=== PATIENT | male | born 1950 | race Caucasian/White ===

== ENCOUNTER 2018-07-19 13:10 | Inpatient (IN) | payer MEDICARE, OTHER ==
[~2018-07-19] VITALS: Ht 165.1 cm; Wt 97.2 kg
[~2018-07-19 13:10] MED LIST: ASPI81TA94 PO; ATOR40TA24 PO; ATR10 PO; AVAPRO PO; OMEG1TAB4; PROB500T31 PO; TELM80TA5 PO
[2018-07-19] MEDS ORDERED: LOSA100T75 PO (13:16)
[2018-07-19] MEDS ORDERED: TAMS0.4C70 PO (13:16)
--- NOTE | 2018-07-19 13:21 | ER Report ---
History and Physical Time Seen By MD: 13:20 Hx. of Stated Complaint: SOB HPI/ROS CHIEF COMPLAINT: Shortness of breath HISTORY OF PRESENT ILLNESS: A 67-year-old male comes emergency Department today with 6-7 days of progressive worsening shortness of breath. Patient has a history of DVT and blood clots last PE was almost 15 years ago cyclamen and for 6 months to year and is no longer on that he is exertional dyspnea and orthopnea no PND no associated chest discomfort or pain or fever chills or sweats nausea vomiting denies any lower some pitting edema. REVIEW OF SYSTEMS: Respiratory: Shortness of breath with exertion no cough Cardiovascular: No chest pain, no palpitations. Gastrointestinal: No vomiting, no abdominal pain. Musculoskeletal: No back pain. Remainder of the 14 system rev: Yes Allergies: Coded Allergies: Penicillins (Verified Allergy, Mild, RASH, 11/02/06) Home Meds Reported Medications Tamsulosin Hcl (TAMSULOSIN HCL) 0.4 Mg Cap.er.24h, 0.4 MG PO, CAP 07/19/18 Losartan Potassium (LOSARTAN POTASSIUM) 100 Mg Tablet, 100 MG PO QDAY 07/19/18 Probenecid (PROBENECID) 500 Mg Tablet, 500 MG PO QDAY 05/16/17 Atorvastatin Calcium (LIPITOR) 40 Mg Tablet, 1 TAB PO HS, TAB 05/16/17 [place]-3S/Dha/Epa/Fish Oil/D3 (Fish Oil Gummies) Unknown Strength Tab.chew 05/16/17 Aspirin (ASPIRIN) 81 Mg Tab.chew, 81 MG PO QDAY, TAB.CHEW 05/16/17 Discontinued Reported Medications Telmisartan (MICARDIS) 80 Mg Tablet, 80 MG PO QDAY 05/16/17 Reviewed Nurses Notes: Yes Old Medical Records Reviewed: Yes Smoking Status: Never Smoker Constitutional Vital Sign - Last 24 Hours 07/19/18 07/19/18 07/19/18 07/19/18 13:13 13:16 13:18 13:25 Temp 97.6 Pulse 101 66 Resp 18 70 B/P (MAP) 191/104 191/104 (133) 173/93 (119) Pulse Ox 90 90 O2 Delivery Room Air 07/19/18 07/19/18 07/19/18 07/19/18 13:30 13:40 13:55 13:57 Pulse 71 ??? Resp 17 B/P (MAP) 151/101 (118) 157/85 (109) Pulse Ox 91 07/19/18 07/19/18 07/19/18 07/19/18 14:00 14:00 14:10 14:25 Pulse 86 73 Resp 19 17 B/P (MAP) 145/93 (110) Pulse Ox 94 93 O2 Flow Rate 1.0 07/19/18 14:30 B/P (MAP) 147/83 (104) Physical Exam General Appearance: The patient is alert, has no immediate need for airway protection and no current signs of toxicity. [ ] Eyes: Pupils equal and round no injection. Respiratory: Chest is non tender, lungs are clear to auscultation. Cardiac: regular rate and rhythm [ ] Gastrointestinal: Abdomen is soft and non tender, no masses, bowel sounds normal. Musculoskeletal: Neck: Neck is supple and non tender. Extremities have full range of motion and are non tender. Skin: No rashes or lesions. [ ] DIFFERENTIAL DIAGNOSIS: After history and physical exam differential diagnosis was considered for palmar emboli cardiac event pneumonia bronchitis Medical Decision Making Data Points Result Diagram: 07/19/18 1319 07/19/18 1319 Laboratory Hematology Test 07/19/18 13:19 Red Blood Count 5.12 M/uL (4.00-5.60) Mean Corpuscular Volume 99.5 fL (80.0-96.0) Mean Corpuscular Hemoglobin 34.6 pg (26.0-33.0) Mean Corpuscular Hemoglobin Concent 34.7 g/dL (32.0-36.0) Red Cell Distribution Width 12.7 % (11.5-14.5) Mean Platelet Volume 10.3 fL (7.2-11.1) Neutrophils (%) (Auto) 83.9 % (39.4-72.5) Lymphocytes (%) (Auto) 8.1 % (17.6-49.6) Monocytes (%) (Auto) 4.3 % (4.1-12.4) Eosinophils (%) (Auto) 1.9 % (0.4-6.7) Basophils (%) (Auto) 1.8 % (0.3-1.4) Nucleated RBC Relative Count (auto) 0.1 /100WBC Neutrophils # (Auto) 6.3 K/uL (2.0-7.4) Lymphocytes # (Auto) 0.6 K/uL (1.3-3.6) Monocytes # (Auto) 0.3 K/uL (0.3-1.0) Eosinophils # (Auto) 0.1 K/uL (0.0-0.5) Basophils # (Auto) 0.1 K/uL (0.0-0.1) Nucleated RBC Absolute Count (auto) 0.00 K/uL Sodium Level 141 mmol/L (137-145) Potassium Level 3.8 mmol/L (3.5-5.0) Chloride Level 104 mmol/L (98-107) Carbon Dioxide Level 24 mmol/L (22-30) Blood Urea Nitrogen 12 mg/dl (9-21) Creatinine 1.00 mg/dl (0.66-1.25) Glomerular Filtration Rate Calc > 60.0 Random Glucose 115 mg/dl (75-110) Calcium Level 9.7 mg/dl (8.4-10.2) Total Bilirubin 1.0 mg/dl (0.2-1.3) Aspartate Amino Transf (AST/SGOT) 30 U/L (0-35) Alanine Aminotransferase (ALT/SGPT) 27 U/L (0-56) Alkaline Phosphatase 76 U/L (0-126) Troponin I 0.015 ng/ml B-Type Natriuretic Peptide 38 pg/ml (0-100) Total Protein 8.2 g/dl (6.3-8.2) Albumin 4.5 g/dl (3.5-5.0) Chemistry Test 07/19/18 13:19 White Blood Count 7.6 k/uL (4.5-11.0) Red Blood Count 5.12 M/uL (4.00-5.60) Hemoglobin 17.7 g/dL (14.0-18.0) Hematocrit 50.9 % (42.0-52.0) Mean Corpuscular Volume 99.5 fL (80.0-96.0) Mean Corpuscular Hemoglobin 34.6 pg (26.0-33.0) Mean Corpuscular Hemoglobin Concent 34.7 g/dL (32.0-36.0) Red Cell Distribution Width 12.7 % (11.5-14.5) Platelet Count 156 K/uL (150-450) Mean Platelet Volume 10.3 fL (7.2-11.1) Neutrophils (%) (Auto) 83.9 % (39.4-72.5) Lymphocytes (%) (Auto) 8.1 % (17.6-49.6) Monocytes (%) (Auto) 4.3 % (4.1-12.4) Eosinophils (%) (Auto) 1.9 % (0.4-6.7) Basophils (%) (Auto) 1.8 % (0.3-1.4) Nucleated RBC Relative Count (auto) 0.1 /100WBC Neutrophils # (Auto) 6.3 K/uL (2.0-7.4) Lymphocytes # (Auto) 0.6 K/uL (1.3-3.6) Monocytes # (Auto) 0.3 K/uL (0.3-1.0) Eosinophils # (Auto) 0.1 K/uL (0.0-0.5) Basophils # (Auto) 0.1 K/uL (0.0-0.1) Nucleated RBC Absolute Count (auto) 0.00 K/uL Glomerular Filtration Rate Calc > 60.0 Calcium Level 9.7 mg/dl (8.4-10.2) Total Bilirubin 1.0 mg/dl (0.2-1.3) Aspartate Amino Transf (AST/SGOT) 30 U/L (0-35) Alanine Aminotransferase (ALT/SGPT) 27 U/L (0-56) Alkaline Phosphatase 76 U/L (0-126) Troponin I 0.015 ng/ml B-Type Natriuretic Peptide 38 pg/ml (0-100) Total Protein 8.2 g/dl (6.3-8.2) Albumin 4.5 g/dl (3.5-5.0) ED Course/Re-evaluation ED Course This is a 67-year-old male history of pulmonary emboli 15 years ago treated comes in today with a week of worsening shortness of breath he has a notable right-sided pulmonary emboli in the subsegmental branches and small left-sided pulmonary emboli as well as be started on Lovenox this demonstrate some mild right heart strain or being admitted for cardiac evaluation and management of the blood clot Decision to Disposition Date: Jul 19, 2018 Decision to Disposition Time: 15:01 Depart Departure Latest Vital Signs Vital Signs Date Time Temp Pulse Resp B/P (MAP) Pulse Ox O2 Delivery O2 Flow Rate FiO2 07/19/18 14:30 147/83 (104) 07/19/18 14:25 73 17 93 07/19/18 14:00 1.0 07/19/18 13:13 97.6 Room Air Impression: Primary Impression: Pulmonary emboli Condition: Improved Disposition: Admitted from ER Referrals: ANTHONY PERDOMO MD (PCP) JEWEL WHITESIDE MD Jul 19, 2018 13:21
[2018-07-19 13:30] LABS: PLATELET COUNT, AUTOMATED 156 K/uL (150-450)
--- NOTE | 2018-07-19 13:31 | EKG ---
FACILITY: [facility] [place] PATIENT NAME: IRMA AGUDELO : [id number] MR: [id number] V: [id number] EXAM DATE: ORDERING PHYSICIAN: JEWEL WHITESIDE TECHNOLOGIST: Test Reason : sob Blood Pressure : / mmHG Vent. Rate : 080 BPM Atrial Rate : 080 BPM P-R Int : 172 ms QRS Dur : 112 ms QT Int : 398 ms P-R-T Axes : 066 252 080 degrees QTc Int : 459 ms Sinus rhythm with sinus arrhythmia with occasional premature ventricular complexes Right superior axis deviation Inferior infarct , age undetermined ST and T wave abnormality, consider anterior ischemia Abnormal ECG No previous ECGs available Confirmed by MATT TORRES ([id number]) on 07/20/2018 6:36:46 AM Referred By: Confirmed By:MATT TORRES
[2018-07-19] MEDS ORDERED: IOPAMIDOL 76% 75 ML INFUS BTL 75 ML ONE (13:56)
[2018-07-19] MEDS ORDERED: NS(*) 0.9% 50 ML BAG 50 ML ONE (13:56)
--- NOTE | 2018-07-19 14:06 | RADIOLOGY IMAGING REPORT ---
[place] [facility] [place] : 1950 MR: [id number] V: [id number] EXAM DATE: ORDERING PHYSICIAN: JEWEL WHITESIDE TECHNOLOGIST: Location: [facility] [place] Patient: Christopher Johnson : 1950 Visit/Account:[id number] Date of Sevice: 07/19/2018 CHEST PA LAT COMPARISONS: None. ADDITIONAL PERTINENT HISTORY: Shortness of breath with history of pulmonary emboli. FINDINGS: Cardiomediastinal silhouette: Negative. Pulmonary vasculature: Negative. Lung cloud: Negative. Pleural spaces: Negative. Osseous structures: Negative. Surrounding soft tissues: Negative. IMPRESSION: No evidence of acute cardiopulmonary disease. Report Dictated By: Josue Morataya MD at 07/19/2018 2:02 PM Report E-Signed By: Josue Morataya MD at 07/19/2018 2:03 PM [id number]
--- NOTE | 2018-07-19 14:47 | RADIOLOGY IMAGING REPORT ---
FACILITY: [facility] [place] PATIENT NAME: Christopher Johnson : 1950 MR: [id number] V: [id number] EXAM DATE: ORDERING PHYSICIAN: JEWEL WHITESIDE TECHNOLOGIST: [place] [facility] [place] : 1950 Visit/Account:[id number] Date of Sevice: 07/19/2018 EXAMINATION: CTA of the chest with IV contrast HISTORY: Shortness of breath. History of pulmonary embolism. TECHNIQUE: Pulmonary embolus protocol - Thin axial CT images of the chest were obtained with IV con trast during maximal pulmonary arterial opacification. Reconstruction of the source data includes mul tiplanar 2D coronal and sagittal reconstructed images, and 3D coronal and sagittal MIP images. Repres entative images have been stored on PACS. One of the following dose optimization techniques was utilized in the performance of this exam: Autom ated exposure control; adjustment of the mA and/or kV according to the patient's size; or use of an i terative reconstruction technique. Specific details can be referenced in the facility's radiology C T exam operational policy. Contrast: 75 mL of IV Isovue-370. COMPARISON: None. FINDINGS: Pulmonary arteries: Exam is positive for pulmonary embolism, with a moderate volume of clot burden. There is a filling defect in the right upper lobe pulmonary artery extending into several segmental a nd subsegmental branches. There is a filling defect in the right interlobar artery extending into seg mental and subsegmental pulmonary artery branches in the right middle and lower lobes. There are daniel ral additional smaller filling defects present within segmental and subsegmental pulmonary artery bra nches in the left upper and lower lobes. Heart, aorta, and great vessels: Normal caliber abdominal aorta. There is mild enlargement of the ri ght-sided cardiac chambers with an RV:LV ratio measuring 1.3 which may indicate some degree of right heart strain. Coronary artery calcifications. No pericardial effusion. Lungs and pleura: The lungs are clear. No focal consolidation or evidence of pulmonary infarct. No p leural effusion or pneumothorax. The central airways are patent. Mediastinum and yimi: Negative. Visualized upper abdomen: Cholecystectomy. Chest wall: Negative. Bones: Negative. IMPRESSION: 1. Positive exam for pulmonary embolism. Moderate amount of overall clot burden, greater on the right . 2. There is mild enlargement of the right-sided cardiac chambers with an RV:LV ratio measuring 1.3 wh ich may indicate some degree of right heart strain. 3. The lungs are clear. No evidence of pulmonary infarct. No pleural effusion. Findings were discussed with JEWEL WHITESIDE at 07/19/2018 2:38 PM. Report Dictated By: Antony Long MD at 07/19/2018 2:31 PM Report E-Signed By: Antony Long MD at 07/19/2018 2:43 PM WSN:[id number]
[2018-07-19] MEDS ORDERED: ENOXAPARIN 100 MG/ML SYR SC SCH (15:00)
[2018-07-19 15:17] LABS: INR 1.03
[2018-07-19 15:26] VITALS: BP 146/91
--- NOTE | 2018-07-19 16:38 | History & Physical ---
History of Present Illness Chief Complaint Shortness of breath History of Present Illness This patient presented to the emergency room complaining of shortness of breath. He does have a history of previous pulmonary embolism 15yrs ago. He took warfarin for approximately 6 months. He had no other episodes during this time. History Problems: (1) Essential hypertension (2) Hypercholesterolemia (3) BPH (benign prostatic hyperplasia) (4) Gout (5) Pulmonary emboli Status: Acute Home Meds Reported Medications Tamsulosin Hcl (TAMSULOSIN HCL) 0.4 Mg Cap.er.24h, 0.4 MG PO, CAP 07/19/18 Losartan Potassium (LOSARTAN POTASSIUM) 100 Mg Tablet, 100 MG PO QDAY 07/19/18 Probenecid (PROBENECID) 500 Mg Tablet, 500 MG PO QDAY 05/16/17 Atorvastatin Calcium (LIPITOR) 40 Mg Tablet, 1 TAB PO HS, TAB 05/16/17 [place]-3S/Dha/Epa/Fish Oil/D3 (Fish Oil Gummies) Unknown Strength Tab.chew 05/16/17 Aspirin (ASPIRIN) 81 Mg Tab.chew, 81 MG PO QDAY, TAB.CHEW 05/16/17 Discontinued Reported Medications Telmisartan (MICARDIS) 80 Mg Tablet, 80 MG PO QDAY 05/16/17 Allergies: Coded Allergies: Penicillins (Verified Allergy, Mild, RASH, 11/02/06) Patient History: FH: heart disease BROTHER OR SISTER BROTHER OR SISTER FH: hypertension BROTHER OR SISTER BROTHER OR SISTER Hx Smoking: No Smoking Status: Never Smoker Caffeine Intake: Coffee, Tea Caffeine/Cups Per Day: 2/week Hx Alcohol Use: Yes Alcohol Used: Beer Hx Substance Use Disorder: Yes Social Drug Use: Currently Social Drugs: Marijuana History of IV Drug Use: No Review of Systems All Systems Reviewed/Normal: Yes, Except as Noted Respiratory: Shortness of Breath Exam Vital Signs Vital Signs Date Time Temp Pulse Resp B/P (MAP) Pulse Ox O2 Delivery O2 Flow Rate FiO2 07/19/18 15:26 98.4 16 146/91 (109) 95 Nasal Cannula 1.0 07/19/18 15:05 78 Neuro: No Gross deficits Eyes: PERRLA Cardiovascular: Regular Rate and Rhythm Respiratory: Clear to Auscultation GI: Abd Soft and Non-Tender Extremities: No Edema Medical Decision Making Data Points Result Diagram: 07/19/18 1319 07/19/18 1319 EKG / Imaging Imaging CT chest reviewed. Assessment and Plan Problems: (1) Pulmonary emboli Status: Acute Assessment & Plan: His CT scan did show clot in both lungs. He did receive a dose of Lovenox in the emergency department. He will transition to Xarelto ov ernight. This is a recurrent clot, and he likely qualifies for life long anticoagulation. (2) Essential hypertension Assessment & Plan: He is on chronic treatment with losartan. (3) Hypercholesterolemia Assessment & Plan: He is on chronic treatment with atorvastatin. (4) Gout Assessment & Plan: He is on chronic treatment with probenecid. (5) BPH (benign prostatic hyperplasia) Assessment & Plan: He is on chronic treatment with tamsulosin. Venous Thromboembolism Antithrombotics Is Pt On Any Antithrombotics?: Yes Exam Sepsis Risk: No Definite Risk MATT TORRES DO Jul 19, 2018 16:38
[2018-07-19] MEDS ORDERED: ATOR20TA65 PO (17:55)
[2018-07-19] MEDS ORDERED: OMEG-11 PO (17:55)
[2018-07-19 18:56] VITALS: BP 172/98
[2018-07-19 21:48] VITALS: BP 147/96
[2018-07-19] MEDS ORDERED: TAMSULOSIN HCL 0.4 MG CAP PO SCH (22:00)
[2018-07-19] MEDS ORDERED: ATORVASTATIN 10 MG TAB PO SCH (22:00)
[2018-07-19] MEDS ORDERED: LOSARTAN POTASSIUM 50 MG TAB PO SCH (22:00)
[2018-07-19] MEDS: OMEGA-3 500 MG CAP PO SCH (22:37)
[2018-07-20 00:24] VITALS: BP 144/95
[2018-07-20] MEDS ORDERED: RIVAROXABAN 10 MG TAB PO SCH ×2 (01:00→11:00)
[2018-07-20 04:54] VITALS: BP 138/85
[2018-07-20 06:28] LABS: PLATELET COUNT, AUTOMATED 120 K/uL (150-450)
[2018-07-20 08:50] VITALS: BP 150/99
[2018-07-20] MEDS: OMEGA-3 500 MG CAP PO SCH (09:00)
[2018-07-20] MEDS ORDERED: PROBENECID 500 MG TAB PO SCH (09:00)
[2018-07-20] MEDS ORDERED: HYPROMELLOSE 0.4% LUB 15ML BTL OU PRN (09:05)
--- NOTE | 2018-07-20 09:30 | Hospitalist Progress Note ---
Subjective Progress Notes Subjective He was admitted with Pulmonary Embolism. He reports some improvement in SOB, however, still has SOB with exertion. Patient Complains of: Cardiovascular: No: Chest Pain Respiratory: No: Cough Gastrointestinal: No Nausea Physical Exam Vital Signs Date Time Temp Pulse Resp B/P (MAP) Pulse Ox O2 Delivery O2 Flow Rate FiO2 07/20/18 08:50 98.3 84 16 150/99 (116) 92 Room Air 07/20/18 04:54 0.5 Intake and Output 07/20/18 07:00 Intake Total 650 ml Balance 650 ml Intake Oral 650 ml # Voids 3 General Appearance: Alert, Awake, No Acute Distress, Afebrile Neuro: No Gross deficits Cardiovascular: Regular Rate and Rhythm Respiratory: No Respiratory Distress, Clear to Auscultation GI: Soft and Non-Tender Extremities: Warm, Perfused; No Edema Psych: Alert & Oriented X3, Appropriate Mood & Affect Result Diagram: 07/20/1846 07/20/18545 Assessment and Plan Problems: (1) Pulmonary emboli Status: Acute Assessment & Plan: He presented with SOB. His CT scan did show clot in both lungs. He did receive a dose of Lovenox in the emergency department. He was transitioned to Xarelto overnight. This is a recurrent clot, and he likely qualifies for life long anticoagulation. 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 He will require Xarelto 15mg BID for 21 days, then Xarelto 20mg daily. He can likely be discharged after medication arrangements have been made. (2) Essential hypertension Assessment & Plan: He is on chronic treatment with losartan. (3) Hypercholesterolemia Assessment & Plan: He is on chronic treatment with atorvastatin. (4) Gout Assessment & Plan: He is on chronic treatment with probenecid. (5) BPH (benign prostatic hyperplasia) Assessment & Plan: He is on chronic treatment with tamsulosin. Copies to: [facility] ; Exam Sepsis Risk: No Definite Risk SILVA GONZALEZ Jul 20, 2018 09:30
[2018-07-20 11:17] VITALS: BP 153/105
[2018-07-20 12:46] VITALS: Ht 165.1 cm; Wt 97.2 kg
[2018-07-20 14:37] VITALS: BP 153/105
[2018-07-20] MEDS ORDERED: RIVA15TA PO (15:33)
--- NOTE | 2018-07-20 15:38 | Hospitalist Depart ---
Discharge Summary Reason for Hosp/Final Diag: (1) Pulmonary emboli Status: Acute Hospital Course & Plan: He presented with SOB. His CT scan did show clot in both lungs. He did receive a dose of Lovenox in the emergency department. He was transitioned to Xarelto overnight. This is a recurrent clot, and he likely qualifies for life long anticoagulation. His PCP from the [facility], Denice Fowler [employer] T[employer]ATMENT PLANT OPERATOR will write for patient to get Xarelto from [facility], so the medication is covered for patient. He will require Xarelto 15mg BID for 21 days, then Xarelto 20mg once daily. He should follow up with PCP within one week of discharge. (2) Essential hypertension Hospital Course & Plan: He is on chronic treatment with losartan. (3) Hypercholesterolemia Hospital Course & Plan: He is on chronic treatment with atorvastatin. (4) Gout Hospital Course & Plan: He is on chronic treatment with probenecid. (5) BPH (benign prostatic hyperplasia) Hospital Course & Plan: He is on chronic treatment with tamsulosin. Departure Latest Vital Signs Vital Signs 07/20/18 07/20/18 04:54 14:37 Temp 98.4 Pulse 77 Resp 18 B/P (MAP) 153/105 (121) Pulse Ox 91 O2 Delivery Room Air O2 Flow Rate 0.5 Weight (Pounds): 214 Weight (Ounces): 4.0 Result Diagram: 07/20/1846 07/20/18545 Condition: Improved Discharge: Home, Self Care Discharge Instructions Home Meds Active Scripts Rivaroxaban 15 Mg (XARELTO 15 MG) 15 Mg Tablet, 15 MG PO BID for 21 Days, #42 TAB Prov:[employer]ONZALE[employer]ILVA [employer]IATE 07/20/18 Reported Medications Atorvastatin Calcium (ATORVASTATIN CALCIUM) 20 Mg Tablet, 0.5 TAB PO QDAY, TAB 07/19/18 [place]-3 Fatty Acids/Fish Oil (FISH OIL 1,000 MG CAPSULE) 1 Each Capsule, 1000 MG PO BID, CAPSULE 07/19/18 Tamsulosin Hcl (TAMSULOSIN HCL) 0.4 Mg Cap.er.24h, 0.4 MG PO QDAY, CAP 07/19/18 Losartan Potassium (LOSARTAN POTASSIUM) 100 Mg Tablet, 100 MG PO QDAY 07/19/18 Probenecid (PROBENECID) 500 Mg Tablet, 500 MG PO QDAY 11/6/17 Discontinued Reported Medications Aspirin (ASPIRIN) 81 Mg Tab.chew, 81 MG PO QDAY, TAB.CHEW 05/16/17 Telmisartan (MICARDIS) 80 Mg Tablet, 80 MG PO QDAY 05/16/17 Atorvastatin Calcium (LIPITOR) 40 Mg Tablet, 1 TAB PO HS, TAB 05/16/17 [place]-3S/Dha/Epa/Fish Oil/D3 (Fish Oil Gummies) Unknown Strength Tab.chew 05/16/17 Diet: Regular Activity: As Tolerated Special Instructions: Take Xarelto 15mg twice daily for 21 days. Then switch to Xarelto 20mg one tablet daily. Follow up with Primary Care Provider in one week. Copies to: [facility] ; Venous Thromboembolism Antithrombotics Is Pt On Any Antithrombotics?: Yes SILVA GONZALEZ Jul 20, 2018 15:38
[2018-07-23] MEDS ORDERED: INFLUENZA VIRUS VAC 0.5ML SYR IM ONLY ONE (09:00)
== END 2018-07-20 17:40 | disposition home or self-care (01) | DRG 176 ==
LOC: ER 13:19 → MED 14:59
PROVIDERS: ADMIT Family Medicine; ATTEND Family Medicine
DX: I26.99 Other pulmonary embolism without acute cor pulmonale (principal); N40.0 Benign prostatic hyperplasia without lower urinary tract symptoms; Z88.0 Allergy status to penicillin; Z86.718 Personal history of other venous thrombosis and embolism; Z90.49 Acquired absence of other specified parts of digestive tract; M1A.9XX0 Chronic gout, unspecified, without tophus (tophi); E78.00 Pure hypercholesterolemia, unspecified
CPT/HCPCS: 36415; 71046; 71275; 82040; 82247; 82310; 82374; 82435; 82565; 82947; 83880; 84075; 84132; 84155; 84295; 84450; 84460; 84484; 84520; 85025; 85610; 85730; 93005; 99285; J1650; J7050; Q9967